=== PATIENT | female | born 2000 | race Caucasian/White ===

== ENCOUNTER 2025-02-26 18:22 | Emergency (ER) | payer OTHER ==
[~2025-02-26] VITALS: Ht 175.3 cm; Wt 86.2 kg
[2025-02-26 18:25] VITALS: BP 118/67
[2025-02-26] MEDS ORDERED: KEPPRA (18:28)
[2025-02-26] MEDS ORDERED: ATIVAN (18:28)
[2025-02-26 19:09] LABS: CREATININE 0.8 mg/dL (0.6-1.3); SODIUM SERUM 140.0 mmol/L (136-145); UREA NITROGEN, BLOOD 10.0 mg/dL (7-18)
[2025-02-26 19:13] LABS: ETHANOL < 3 MG/DL (0-10)
[2025-02-26 19:23] VITALS: BP 110/61; O2SAT 97
== END 2025-02-26 19:25 | disposition home or self-care (01) ==
LOC: ER 18:36
DX: G40.909 Epilepsy, unspecified, not intractable, without status epilepticus (principal); F10.20 Alcohol dependence, uncomplicated; Y90.9 Presence of alcohol in blood, level not specified
CPT/HCPCS: 80048; 99284; 96365; 80299; 80320; J1953 ×2; 36415; A4606; A4663; G0480